=== PATIENT | male | born 1950 | race Caucasian/White ===

== ENCOUNTER 2019-04-21 07:48 | Inpatient (IN) | payer OTHER, MEDICARE ==
[2019-04-18 14:02] VITALS: BMI 25.7
[2019-04-21 08:25] LABS: #Basophils 0.1 thou/uL (0.0-0.2); #Eosinphils 0.4 thou/uL (0.0-0.7); #Lymphocytes 1.1 thou/uL (1.20-3.40); #Monocytes 0.7 thou/uL (0.11-0.59); %Eosinophils 5.7 % (0.0-10.0); %Lymphocytes 18.3 % (21.0-51.0); %Monocytes 10.6 % (0.0-10.0); %Neutrophils 64.4 % (42.0-75.0); Hemoglobin 16.7 g/dL (14.0-18.0); Mean Corpuscular HGB CONC 34.6 g/dL (32.0-36.0); Mean Corpuscular Hemoglobin 34.1 pg (27.0-31.0); Mean Corpuscular Volume 98.5 fL (78.0-98.0); Mean Platelet Volume 7.4 fL (7.4-10.4); Platelet Count 182 thou/uL (130-400); Red Blood Cell (RBC) Count 4.91 mill/uL (4.70-6.10); White Blood Cell (WBC) Count 6.1 thou/uL (4.8-10.8)
[2019-04-21 08:44] LABS: Anion Gap 13 mmol/L (10-20); BUN (Urea Nitrogen) 13 mg/dL (8.4-25.7); Calc. Creatinine Clearance 101 mL/min (70-130); Carbon Dioxide 29 mmol/L (23-31); Chloride 102 mmol/L (98-107); Estimated GFR-MDRD Greater than 90; Glucose 104 mg/dL (80-115); Potassium 4.1 mmol/L (3.5-5.1); Sodium 140 mmol/L (136-145)
[2019-04-21] MEDS ORDERED: Sodium Chloride 0.9% 10 ML ONE (10:11)
[2019-04-21] MEDS ORDERED: Fentanyl 100 MCG/2 ML VIAL ONE ×5 (10:35→13:14)
[2019-04-21] MEDS ORDERED: Ondansetron HCl/PF 4 MG/2 ML Vial IVP PRN (11:47)
[2019-04-21] MEDS ORDERED: Meperidine HCl/PF 25 MG/ML VIAL SLOW IVP PRN (11:47)
[2019-04-21] MEDS ORDERED: Promethazine HCl 25 MG/ML VIAL IM PRN (11:47)
[2019-04-21] MEDS ORDERED: Morphine Sulfate 2 MG/ML SYRINGE SLOW IVP PRN (11:47)
[2019-04-21] MEDS ORDERED: PACU-Morphine 4MG/ML VIAL SLOW IVP PRN (11:47)
[2019-04-21] MEDS ORDERED: Promethazine HCl 25 MG/ML VIAL SLOW IVP PRN (11:47)
[2019-04-21] MEDS ORDERED: Lidocaine 1% PF 5 ML VIAL ONE (11:51)
[2019-04-21] MEDS ORDERED: Dexamethasone 20 MG/5 ML VIAL ONE (11:51)
[2019-04-21] MEDS ORDERED: Glycopyrrolate 0.2 MG/ML 5 ML SYRINGE ONE (11:51)
[2019-04-21] MEDS ORDERED: Ondansetron PF 4 MG/2 ML Vial ONE (11:51)
[2019-04-21] MEDS ORDERED: PROPOFOL 200 MG/20 ML VIAL ONE (11:51)
[2019-04-21] MEDS ORDERED: Rocuronium Bromide 10 MG/ML (10ML VIAL) ONE (11:51)
[2019-04-21] MEDS ORDERED: PROVENTIL INHALER 6.7 G (200 INHALATIONS) ONE (11:51)
[2019-04-21] MEDS ORDERED: Morphine 4 MG/ML VIAL ONE (13:46)
[2019-04-21] MEDS ORDERED: Mag-Al 1200 mg/1200 mg/30 ML UDCUP PO PRN (13:48)
[2019-04-21] MEDS ORDERED: Promethazine HCl 12.5 MG SUPP PR PRN (13:48)
[2019-04-21] MEDS ORDERED: Ondansetron PF 4 MG/2 ML Vial IM PRN (13:48)
[2019-04-21] MEDS ORDERED: Milk Of Magnesia 30 ML UDCUP PO PRN (13:48)
[2019-04-21] MEDS ORDERED: HYDROcodone/Acetaminophen 10/325 mg Tablet PO PRN (13:48)
[2019-04-21] MEDS ORDERED: tiZANidine HCl 4 MG TAB PO PRN (13:48)
[2019-04-21] MEDS ORDERED: Morphine 4 MG/ML VIAL SLOW IVP PRN (13:48)
[2019-04-21] MEDS ORDERED: traMADol HCl 50 MG TAB PO PRN ×2 (13:48)
[2019-04-21] MEDS ORDERED: Promethazine 25 MG TAB PO PRN (13:48)
[2019-04-21] MEDS ORDERED: diphenhydrAMINE 25 MG CAP PO PRN (13:48)
[2019-04-21] MEDS ORDERED: diphenhydrAMINE 50 MG/ML VIAL IVP PRN (13:48)
[2019-04-21] MEDS ORDERED: Morphine 2 MG/ML SYRINGE SLOW IVP PRN (13:54)
[2019-04-21] MEDS: HYDROcodone/Acetaminophen 10/325 mg Tablet PO PRN ×3 (15:20→23:46)
[2019-04-21] MEDS: Sodium Chloride 0.9% 1,000 ML IV SCH (15:22)
[2019-04-21] MEDS: CEFAZOLIN 2 GM in Premix Bag 1 BAG IVPB SCH ×2 (16:40→23:46)
--- NOTE | 2019-04-21 17:32 | OP ---
DATE OF PROCEDURE: 04/21/2019 [employer] WORKER: Ibeth Mariee PA-C PROCEDURES PERFORMED: L2-3 laminectomy; posterolateral arthrodesis, L2-3; and demineralized bone matrix local morselized autograft. DESCRIPTION OF PROCEDURE: The patient was brought to the operating room and intubated. He was rolled in the prone position on gel-filled chest rolls. An incision was made exposing L2 and L3, and his level was confirmed by x-ray. We performed laminectomies of L3 and inferior L2 completely decompressing the L2-3 interspace. After complete decompression had been secured bilaterally, we placed pedicle screws on the right at L2 and L3 using lateral fluoroscopic guidance. The bone was found to be quite soft. Myles was secured between the screws and connected by nuts, which were final tightened. The wound was then extensively irrigated and MAC hemostasis was secured. A combination of demineralized bone matrix and local morselized autograft was laid over the posterolateral surfaces for the purpose of arthrodesis. Vancomycin powder was applied, and the wound was then closed in anatomic layers. Job ID: [id number]
[2019-04-21] MEDS ORDERED: Ezetimibe 10 MG TAB PO SCH (21:00)
[2019-04-21] MEDS ORDERED: [UNRECOGNIZED DRUG - OTHER] PO SCH (21:00)
[2019-04-21] MEDS ORDERED: Simvastatin 20 MG TAB PO SCH (21:00)
[2019-04-21] MEDS ORDERED: SIMVASTATIN PO SCH (21:00)
[2019-04-21] MEDS ORDERED: EZETIMIBE PO SCH (21:00)
--- NOTE | 2019-04-21 22:39 | CON ---
DATE OF CONSULTATION: PRIMARY CARE PHYSICIAN: Eva Morrow. PRIMARY TEAM: Nitin Hernández MD REASON FOR CONSULTATION: Medical management. HISTORY OF PRESENT ILLNESS: This is a 69-year-old white male with a history of recently progressive spinal claudication. The patient has had worsening pain in his upper legs radiating from his low back, preventing him from walking any significant distance and from standing up for more than a few minutes. He was evaluated in the outpatient by Dr. Hernández and recommended for lumbar laminectomy with fusion. He did see his digital performance analyst and was noted to be low risk for cardiac complications and was cleared for surgery. The patient had his lumbar laminectomy with fusion done earlier today. He is now back in the room from the PACU and is doing well except for some pain in his low back for which he is back to receive his scheduled medication. The patient denies any other complaints. PAST MEDICAL HISTORY: 1. Coronary artery disease with stents placed quite a few years ago and no recent symptoms. 2. Hypertension. 3. Hyperlipidemia. 4. Osteoarthritis. 5. Lumbar spinal stenosis. PAST SURGICAL HISTORY: None. SOCIAL HISTORY: The patient smokes 1 pack per day of cigarettes. He drinks about a 12-pack of beer over the course of week. No illicit drugs. He is . FAMILY HISTORY: Father of a myocardial infarction. Mother had pancreatic cancer and diabetes. ALLERGIES: 1. DILAUDID. CURRENT MEDICATIONS: 1. Multivitamin daily. 2. Prilosec 20 mg daily. 3. Zetia/simvastatin 10/20 mg each night. 4. Aspirin 81 mg daily. 5. Ranexa 500 mg daily. 6. Losartan/hydrochlorothiazide 100/25 mg one tablet daily. 7. Montelukast sodium 10 mg each morning. 8. Metoprolol succinate 50 mg at night. REVIEW OF SYSTEMS: CONSTITUTIONAL: No fever or chills. EYES: No double vision or blurred vision. ENT: No congestion, drainage, or sore throat. CARDIOVASCULAR: No chest pain. No palpitations or racing heart. PULMONARY: No coughing, wheezing or shortness of breath. GASTROINTESTINAL: No abdominal pain. No nausea or vomiting. No diarrhea or constipation. GENITOURINARY: No dysuria or hematuria. MUSCULOSKELETAL: See HPI. SKIN: No rashes or other lesions. NEUROLOGIC: No numbness, tingling, or focal weakness. PHYSICAL EXAMINATION: VITAL SIGNS: Blood pressure 116/67, pulse 64, respirations 18, O2 saturation 96 % on room air, temperature 97.6. GENERAL: This is a well-developed, well-nourished white male, in no acute distress. HEENT: Pupils are equal, round, and reactive to light. Oropharynx is clear without lesions, erythema, or exudate. NECK: Supple. No lymphadenopathy. No thyroid nodules or enlargement. HEART: Regular rate and rhythm. No murmurs, rubs, or gallops. LUNGS: Clear to auscultation bilaterally. No wheezes, crackles, or rhonchi. ABDOMEN: Soft, nontender to palpation. Normoactive bowel sounds. No hepatosplenomegaly or other masses. EXTREMITIES: No clubbing, cyanosis, or edema. SKIN: No rashes or other lesions noted. I did not examine the area of the surgery in his lumbar spine. NEUROLOGIC: The patient has intact sensation in all extremities. He does have some pain in his low back with moving his lower extremities, so I did not do a full strength exam on him. He has no facial droop and he has clear speech. LABORATORY DATA: CBC is grossly normal and basic metabolic panel is within normal limits. ASSESSMENT: 1. Status post lumbar laminectomy and fusion. 2. History of coronary artery disease with stents. We will resume patient's home medications except for his aspirin which is being held by Neurosurgery. We will resume that once okay with Neurosurgery, usually in 1-2 weeks. 3. Hypertension. We will resume antihypertensives. 4. Hyperlipidemia. We will resume the patient's Zetia with simvastatin. 5. Gastrointestinal prophylaxis. We will continue patient on Protonix in the hospital. 6. Deep venous thrombosis prophylaxis. The patient is on SCDs, all of his blood thinners are being held due to a spinal surgery. 7. Code status. The patient is a full code. Job ID: [id number] MTDD
[2019-04-22] MEDS: Sodium Chloride 0.9% 1,000 ML IV SCH (03:19)
[2019-04-22] MEDS: HYDROcodone/Acetaminophen 10/325 mg Tablet PO PRN ×2 (04:11→08:28)
[2019-04-22 07:40] VITALS: BP 111/65; TEMP 98.5
[2019-04-22] MEDS ORDERED: Losartan/Hydrochlorothiazide 100 mg/25 mg Tablet PO SCH (09:00)
[2019-04-22] MEDS ORDERED: Multivit, Therapeutic 1 TAB PO SCH (09:00)
[2019-04-22] MEDS ORDERED: Montelukast Sodium 10 mg Tablet PO SCH (09:00)
--- NOTE | 2019-04-22 11:21 | DIS ---
DATE OF ADMISSION: 04/21/2019 DATE OF DISCHARGE: 04/22/2019 HOSPITAL COURSE: The patient is a 69-year-old male recently seen in our office for progressive back pain and neurogenic claudication. He was found to have significant stenosis at L2 and L3 with spondylolisthesis at this area and underwent L2-L3 decompression and fusion on 04/21/2019. Following the surgery, he was transitioned to the Med/Surg floor, where his pain has been well-controlled with p.o. medications, he has been tolerating regular diet, and he has been voiding appropriately. He did have some incisional drainage issues, which required changing and reinforcement of the dressing, but this has improved overnight. On exam this morning, the patient is awake, alert, in no acute distress. He has free active range of motion all extremities. No focal motor weakness or reflex asymmetry. He is ambulating throughout the department without any difficulty. He does have small amount of dark red drainage from the incision, but it appears intact. The patient appears to be doing well following his surgery. We will plan to dismiss the patient to home. I have discussed home care and advise b.i.d. dressing changes. This incisional drainage will decrease over the next 2 to 3 days. The patient will hold his anticoagulants for the next 2 weeks. He has been prescribed scripts for [place], Zanaflex, and Keflex. Discussed home care and precautions. We will follow up in 2 weeks. Job ID: [id number]
== END 2019-04-22 09:40 | disposition home or self-care (01) | DRG 460 ==
LOC: EDBD → SURG A 07:48
PROVIDERS: ADMIT Neurological Surgery; ATTEND Neurological Surgery
PROC: 0SG0071 Fusion of Lumbar Vertebral Joint with Autologous Tissue Substitute, Posterior Approach, Posterior Column, Open Approach (ICD-10-PCS; principal; 2019-04-21)
DX: M43.16 Spondylolisthesis, lumbar region (principal); E78.5 Hyperlipidemia, unspecified; I25.10 Atherosclerotic heart disease of native coronary artery without angina pectoris; I10 Essential (primary) hypertension; M19.90 Unspecified osteoarthritis, unspecified site; F17.210 Nicotine dependence, cigarettes, uncomplicated; Z95.5 Presence of coronary angioplasty implant and graft; Z88.8 Allergy status to other drugs, medicaments and biological substances; Z79.82 Long term (current) use of aspirin
CPT/HCPCS: 36415; 76000; 80048; 85025; 93005; 93010; C1713; C1768; J0690; J1100; J2001; J2270; J2405; J2704; J3010; J3370; J3490

== ENCOUNTER 2019-05-06 10:40 | Outpatient (CLI) | payer OTHER, MEDICARE ==
--- NOTE | 2019-05-06 11:17 | RAD ---
Exam: Lumbar spine 2 views HISTORY: Previous back surgery 2 weeks ago. Follow-up exam FINDINGS: 5 lumbar type vertebral bodies. Right-sided transpedicular screw at L2 and L3. No perihardware lucenc y. Vertebral body height is maintained. No fracture. 1.9 mm of anterolisthesis of L3 upon L4. 3.3 mm of anterolisthesis of L4 upon L5. Atherosclerosis is noted. IMPRESSION: Uncomplicated lumbar fusion hardware. Transcribed Date/Time: 05/06/2019 11:19 AM
== END 2019-05-06 10:41 | disposition home or self-care (01) ==
LOC: TBSIIMAG 10:40
PROVIDERS: ATTEND Neurological Surgery
DX: M43.16 Spondylolisthesis, lumbar region (principal); Z98.1 Arthrodesis status
CPT/HCPCS: 72100